=== PATIENT | male | born 1995 | race Caucasian/White ===

== ENCOUNTER 2018-07-15 18:28 | Emergency (ER) | payer MEDICAID ==
[~2018-07-15] VITALS: Ht 175.3 cm; Wt 96.0 kg
[2018-07-15] MEDS ORDERED: LIDOCAINE HCL/PF 1% 10 MG/ML 5ML VIAL IJ ONE (19:30)
[2018-07-15] MEDS ORDERED: BACITRACIN ZINC OINT UDPKT TOP ONE (19:30)
[2018-07-15] MEDS ORDERED: ACETAMINOPHEN 325MG TABLET PO ONE (19:30)
[2018-07-15] MEDS ORDERED: TETANUS, DIPHTHERIA, PERTUSSIS VAC/PF 0.5ML (>7YR OLD) IM ONE (19:30)
[2018-07-15 21:15] VITALS: BP 134/83
== END 2018-07-15 21:20 | disposition home or self-care (01) ==
LOC: ER 20:36
DX: S01.01XA Laceration without foreign body of scalp, initial encounter (principal); S09.8XXA Other specified injuries of head, initial encounter; F84.0 Autistic disorder; W22.03XA Walked into furniture, initial encounter; Y93.89 Activity, other specified; Y92.9 Unspecified place or not applicable
CPT/HCPCS: 12001; 90471; 90715; 99283; J3490